=== PATIENT | female | born 1960 | race Caucasian/White ===

== ENCOUNTER → 2024-12-28 09:22 | Outpatient (CLI) | payer OTHER, SELFPAY ==
[2024-12-28 09:58] LABS: Add Manual Diff / Slide Review NO; Hematocrit 44.0 % (36-46); Hemoglobin 15.1 g/dL (12.0-16.0); Lymphocytes Absolute Auto 2300 /uL (1100-4500); Mean Corpuscular HGB Conc 34.5 % (30-36); Mean Corpuscular Hemoglobin 31.0 PG (26-34); Mean Corpuscular Volume 89.9 fL (80-100); Platelet Count 321 X10^3/uL (150-400)
--- NOTE | 2024-12-28 09:58 | DI.RAD.S_ITS ---
PROCEDURE: XR LUMBAR SPINE 2-3V INDICATIONS: back pain TECHNIQUE: 3 views of the lumbar spine were acquired. COMPARISON: None. FINDINGS: Bones: 5 [id number] vertebrae are present. Loss of normal lumbar lordosis. Anterolisthesis of L4 on L5 measures 5 mm. There is otherwise normal bony alignment. Moderate to severe L4-L5 and L5-S1 and mild to moderate L2-L3 disc height loss with adjacent endplate sclerosis and anterior osteophytosis. No vertebral body compression fractures. No suspicious bony lesions. Soft tissues: Overlying bowel gas pattern is normal. No suspicious soft tissue calcifications. IMPRESSION: Degenerative change of the lumbar spine including anterolisthesis of L4 on L5 without evidence of acute bony abnormality. Dictated by: Dylan Reed M.D. on 12/31/2024 at 5:55 Approved by: Dylan Reed M.D. on 12/31/2024 at 6:00
--- NOTE | 2024-12-28 09:58 | DI.RAD.S_ITS ---
PROCEDURE: XR HIP W PEL IF DONE BILAT 2V INDICATIONS: BACK PAIN/SCIATICA TECHNIQUE: AP pelvis with lateral view(s) of the bilateral hip(s). COMPARISON: None. FINDINGS: Bones: No fractures or dislocations. Pelvic ring appears intact. No suspicious bony lesions. Soft tissues: The visualized bowel gas pattern is normal. No suspicious soft tissue calcifications. IMPRESSION: No acute bony abnormality. Dictated by: Dylan Reed M.D. on 12/31/2024 at 5:55 Approved by: Dylan Reed M.D. on 12/31/2024 at 5:55
[2024-12-28 10:26] LABS: Alanine Aminotransferase 16 IU/L (<35); Albumin 4.5 g/dL (3.5-5.0); Albumin Globulin Ratio 1.4 (1.0-2.8); Alkaline Phosphatase 73 U/L (38-126); Blood Urea Nitrogen 14 mg/dL (7-17); Calcium 9.8 mg/dL (8.4-10.2); Carbon Dioxide 21 mmol/L (22-32); Chloride 106 mmol/L (98-107); Cholesterol 264 mg/dL (140-199); Estimated Glomerular Filt Rate > 60 mL/min (>60); Globulin 3.2 g/dL (1.7-4.1); Glucose 121 mg/dL (70-99); HDL Cholesterol 57 mg/dL (40-60); HEMOLYSIS < 15 (0-50); Potassium 4.1 mmol/L (3.4-5.1); Sodium 138 mmol/L (137-145); Total Protein 7.7 g/dL (6.3-8.2); Triglycerides 213 mg/dL (35-150)
[2024-12-28 10:54] LABS: Hemoglobin A1C% w Est Avg Glu 6.0 % (4.0-6.0)
[2024-12-28 10:58] LABS: TSH w/ Reflex to FT4 1.02 uIU/mL (0.47-4.68)
== END ==
LOC: LAB 09:25 → RAD 09:58
PROVIDERS: PCP Family Medicine; Referring Provider Family Medicine; Visit Provider Family Medicine
DX: M54.9 Dorsalgia, unspecified (principal); E66.9 Obesity, unspecified; R20.0 Anesthesia of skin; R29.898 Other symptoms and signs involving the musculoskeletal system
CPT/HCPCS: 36415; 72100; 73521; 80053; 80061; 83036; 84443; 85025